=== PATIENT | female | born 1965 | race Caucasian/White ===

== ENCOUNTER → 2023-11-03 12:47 | Outpatient (REF) | payer BC, SELFPAY | LOC: HWWDC 12:47 | PROVIDERS: ATTENDING PHYSICIAN Physician Assistant Medical | DX: Z12.31 Encounter for screening mammogram for malignant neoplasm of breast (principal) | CPT/HCPCS: 77063; 77067 ==

== ENCOUNTER → 2024-02-26 17:24 | Outpatient (REF) | payer BC, SELFPAY | LOC: MRI 3T 17:24 | PROVIDERS: ATTENDING PHYSICIAN Nurse Practitioner; FAMILY PHYSICIAN Family Medicine | DX: G35 Multiple sclerosis (principal) | CPT/HCPCS: 70553; 72156; A9575 ==

== ENCOUNTER → 2024-02-27 17:15 | Outpatient (REF) | payer BC, SELFPAY | LOC: MRI 3T 17:15 | PROVIDERS: ATTENDING PHYSICIAN Nurse Practitioner; FAMILY PHYSICIAN Family Medicine | DX: G35 Multiple sclerosis (principal) | CPT/HCPCS: 72157; A9575 ==